=== PATIENT | female | born 1990 | race Two or more races ===

== ENCOUNTER 2016-04-23 09:46 | Emergency (ER) | payer OTHER ==
[~2016-04-23] VITALS: Ht 167.6 cm; Wt 59.0 kg
[2016-04-23] MEDS ORDERED: METOCLOPRAMIDE HCL 10 MG/2 ML VIAL IV ONE (10:30)
[2016-04-23] MEDS ORDERED: diphenhydrAMINE HCL 50 MG/ML VIAL IV ONE (10:30)
[2016-04-23] MEDS ORDERED: IV SET PRIMARY PUMP SET 1 EA INFUS.SET MC ONE (10:38)
[2016-04-23] MEDS ORDERED: METOCLOPRAMIDE HCL 10 MG/2 ML VIAL ONE (10:38)
[2016-04-23] MEDS ORDERED: diphenhydrAMINE HCL 50 MG/ML VIAL ONE (10:38)
[2016-04-23] MEDS ORDERED: IV NS 0.9% 500 ML IV ONE (10:38)
[2016-04-23 11:36] VITALS: BP 118/68
== END 2016-04-23 11:37 | disposition home or self-care (01) ==
LOC: ER 09:48
DX: G43.909 Migraine, unspecified, not intractable, without status migrainosus (principal); J45.909 Unspecified asthma, uncomplicated; Z88.6 Allergy status to analgesic agent
CPT/HCPCS: 36415; 84703; 96374; 96375; 99284; A4606; J1200; J2765; J7040; Z7610